=== PATIENT | male | born 1945 | race Caucasian/White ===

== ENCOUNTER 2017-01-03 10:49 | Emergency (ER) | payer OTHER, MEDICARE ==
[~2017-01-03] VITALS: Ht 175.3 cm; Wt 107.6 kg
[~2017-01-03 10:49] MED LIST: ALBUTEROL SULF8.5 GM IH; AZITHROMYCIN250 MG1 PO; BENTYL20 MG PO; CENTRUM SILVER1 EAC3 PO; FLEXERIL10 MG PO; MOTRIN800 MG PO; NAPROSYN375 MG PO; OMEPRAZOLE40 M1 PO; PREDNISONE20 MG PO; PRILOSEC20 MG PO; ROBITUSSIN AC,T10 ML PO; VALIUM2 MG PO; VICODIN 5-3001 EACH PO
[2017-01-03 12:34] LABS: HEMATOCRIT 47.5 % (38.0-50.0); MCH 28.5 PG (29.0-34.0); MCHC 32.8 G/DL (30.0-36.0); MCV 86.7 FL (86-99); MEAN PLAT.VOLUME 10.2 uM^3 (9.0-12.4); PLATELET COUNT 187 K/uL (156-360); RBC DIS.WIDTH-CV 13.1 % (11.8-14.6); RBC DIS.WIDTH-SD 40.8 % (39-53); RED BLOOD COUNT 5.48 M/uL (4.00-5.50); WHITE BLOOD COUNT 9.4 K/uL (4.1-10.2)
[2017-01-03 12:45] LABS: CHLORIDE 106 mEq/L (99-109); SODIUM 141 mEq/L (136-147)
[2017-01-03 12:47] LABS: GLUCOSE 111 mg/dL (70-99)
[2017-01-03 12:48] LABS: ANION GAP 11 MEQ/L (2-14)
[2017-01-03 12:50] LABS: GFR ESTIMATE (CALCULATED) > 59 mL/min/
[2017-01-03 12:51] LABS: UREA NITROGEN (BUN) 16 mg/dL (9-23)
[2017-01-03 15:03] LABS: ADD MIUA? NO; BILIRUBIN NEGATIVE; BLOOD NEGATIVE; COLOR YELLOW ((YELLOW)); GLUCOSE (STRIP) NEGATIVE; KETONES NEGATIVE; LEUKOCYTES NEGATIVE; NITRITE NEGATIVE; PROTEIN (STRIP) 30; SPECIFIC GRAVITY 1.024 (1.000-1.030); UCUL ADDED? NO; UROBILINOGEN 0.2 MG/DL (0.2-1.0)
[2017-01-03 17:09] VITALS: BP 148/87
== END 2017-01-03 17:09 | disposition home or self-care (01) ==
LOC: EME 10:49
DX: M54.5 Low back pain (principal); R35.0 Frequency of micturition; R30.0 Dysuria; Z86.74 Personal history of sudden cardiac arrest; Z87.891 Personal history of nicotine dependence
CPT/HCPCS: 74176; 80048; 81003; 85027; 99281; 99284; J7030